=== PATIENT | female | born 1975 | race Hispanic/Latino ===

== ENCOUNTER 2022-02-27 13:45 | Emergency (ER) | payer SELFPAY | END 2022-02-27 14:55 | disposition left against medical advice (07) | LOC: MADERS 13:45 | DX: Z53.21 Procedure and treatment not carried out due to patient leaving prior to being seen by health care provider (principal) ==

== ENCOUNTER 2022-12-03 18:36 | Emergency (ER) | payer SELFPAY ==
[2022-12-03] MEDS ORDERED: Ibuprofen 800 MG TAB ONE (19:19)
== END 2022-12-03 19:45 | disposition home or self-care (01) ==
LOC: MADERS 18:36
DX: M70.42 Prepatellar bursitis, left knee (principal); I10 Essential (primary) hypertension